=== PATIENT | female | born 1930 | race Caucasian/White ===

== ENCOUNTER 2021-12-31 20:09 | Inpatient (IN) | payer MEDICARE, OTHER ==
[~2021-12-31] VITALS: Ht 152.4 cm; Wt 79.4 kg
[~2021-12-31 20:09] MED LIST: ACET-822 PO; BENZ200C53 PO; CLID1CAP PO; DULO60CA45 PO; ESCI10TA PO; LANS30CA56 PO; MECL-159 PO; PREG50CA PO; TRAM50TA2 PO; VALS1TAB PO
[2021-12-31 21:40] LABS: HEMATOCRIT 38.3 % (31.2-41.9); MEAN CORPUSCULAR VOLUME 92.3 fL (75.5-95.3); PLATELET COUNT (AUTO) 284 K/uL (179-408)
--- NOTE | 2021-12-31 21:43 | NUR ---
pt out of er for CT
--- NOTE | 2021-12-31 21:59 | NUR ---
pt back from ct
--- NOTE | 2021-12-31 22:00 | NUR ---
PATIENT UNABLE TO RECALL HOME MEDICATION AT THIS TIME. CALLED PATIENT'S DAUGHTER GIOVANA COLLINS WHO STATES SHE WILL BRING BOTTLE OF MEDICATION IN THE AM.
[2021-12-31 22:25] LABS: ALANINE AMINOTRANSFERASE 22 U/L (14-59); ALKALINE PHOSPHATASE 106 U/L (50-136); ASPARTATE AMINOTRANSFERASE 28 U/L (15-37); BILIRUBIN,DIRECT 0.1 mg/dL (0.0-0.2); BILIRUBIN,TOTAL 0.3 mg/dL (0.2-1.0); CARBON DIOXIDE 32 mmol/L (21-32); CHLORIDE 100 mmol/L (98-107); CREATININE 0.9 mg/dL (0.6-1.3); GLUCOSE 118 mg/dL (74-106); POTASSIUM 3.8 mmol/L (3.5-5.1); TOTAL PROTEIN, SERUM 7.7 g/dL (6.4-8.2); UREA NITROGEN, BLOOD 26 mg/dL (7-18)
[2021-12-31 23:07] LABS: THYROID STIMULATING HORMONE 0.396 mIU/mL (0.358-3.740)
[2021-12-31 23:35] LABS: *BILIRUBIN,URIN NEGATIVE (NEGATIVE); *BLOOD, URINE 1+ (NEGATIVE); *COLOR,URINE YELLOW (YELLOW); *KETONES,URINE NEGATIVE (NEGATIVE); *UROBILINOGEN,URINE 0.2 E.U./dl (NORMAL); LEUKOCYTE ESTERASE ,URINE 1+ (NEGATIVE); NITRITE, URINE NEGATIVE (NEGATIVE); UGLUCOSE NEGATIVE (NEGATIVE)
[2022-01-01] MEDS ORDERED: CEFTRIAXONE 1 G in IV DEXTROSE 5% 50 ML IV ONE (00:15)
[2022-01-01] MEDS ORDERED: CEFTRIAXONE /D5W 50ML IVPB **ER PYXIS IV ONE (00:30)
--- NOTE | 2022-01-01 02:04 | NUR ---
pt in bed asleep. easily arousable no s/s of distress denies pain at this time instructed pt to call nurse for assistance will continue to monitor
--- NOTE | 2022-01-01 02:18 | NUR ---
report given to DAVID maynard
--- NOTE | 2022-01-01 03:22 | NUR ---
Dr. Bazan speaking to Guzman Pinto NP, [facility] utilization management um nurse
[2022-01-01] MEDS ORDERED: ONDANSETRON 4 MG/2 ML VIAL IV PRN (03:45)
[2022-01-01] MEDS ORDERED: HYDROCODONE/APAP 5-325MG TABLET PO PRN (03:45)
[2022-01-01] MEDS ORDERED: ACETAMINOPHEN 325 MG TABLET PO PRN (03:45)
[2022-01-01] MEDS ORDERED: REMEDY ESSENTIAL ZINC PASTE 113 GM TP PRN (03:45)
[2022-01-01] MEDS ORDERED: MAGNESIUM HYDROXIDE 30 ML LIQUID UDC PO PRN (03:45)
[2022-01-01] MEDS ORDERED: TEMAZEPAM 15 MG CAPSULE PO PRN (03:45)
--- NOTE | 2022-01-01 04:24 | NUR ---
Pt. admitted to TELE room 318 , under care of Guzman Pinto,APARTMENT HOTEL MANAGER [place] List completed no s/s of distress respirations even and unlabored Transfered to 3rd floor
--- NOTE | 2022-01-01 06:00 | NUR ---
Pt arrived at 0430 via gurney. AO x 2. Farsi speaking. On room air saturating at 98%. BP 132/74, HR 75, R 18, Temp 98.6. IV in R AC, saline flushed and heplock. Fall prevention and aspiration precautions initiated. Wound consult put in for evaluation of sacral excoriation. Pt complained of itchiness on left fingers. Call lights within reach. Safety measures implemented. Will endorse to am shift.
[2022-01-01] MEDS: PANTOPRAZOLE SODIUM 40 MG VIAL IV SCH (09:28)
[2022-01-01] MEDS: diphenhydrAMINE 1% CREAM 28.3 GM TUBE TP PRN ×2 (09:30→21:19)
--- NOTE | 2022-01-01 10:00 | NUR ---
patient with c/o itching all over body, asked patient and family if it is a new problem per patient and daughter "no she gets itchy sometimes" applied topical benadryl as ordered, per daughter can she get a shot, Dr. Salter in unit per MD if ointment is ineffective ok to order "benadryl 25mg x1"
[2022-01-01 11:33] VITALS: BP 129/46
--- NOTE | 2022-01-01 12:17 | NUR ---
WOUND CARE CONSULT: PT SEEN WITH SURGICAL P.A. FOR SKIN ASSESSMENT. PT NOTED TO HAVE INNER BUTTOCKS RASH WITH OPEN SKIN AND REDNESS TO LOWER LEGS AND BUNION, PRESENT ON ADMISSION. RECOMMEND DPM CONSULT. RECOMMENDATIONS MADE FOR SKIN CARE AND PROTECTION. DISCUSSED WITH NURSING STAFF AND SURGICAL P.A. DR BYRNES CALLED FOR DPM CONSULT. IN AGREEMENT WITH PLAN OF CARE.
--- NOTE | 2022-01-01 14:00 | NUR ---
DTR asking if patient could be sent to [facility] for the aging or for possible homehealth, explained i would relay information to CM.
[2022-01-01] MEDS ORDERED: PRIM50TA27 PO (14:18)
[2022-01-01] MEDS ORDERED: CALC60CR5 TP (14:32)
[2022-01-01] MEDS ORDERED: MULT-24 PO (14:32)
[2022-01-01] MEDS ORDERED: CHOL200059 PO (14:32)
[2022-01-01] MEDS ORDERED: KETO15CR2 TP (14:32)
[2022-01-01] MEDS ORDERED: VALS1TAB7 PO (14:32)
[2022-01-01] MEDS ORDERED: SIME180C70 PO (14:32)
[2022-01-01] MEDS ORDERED: MAG30ORA PO (14:32)
[2022-01-01] MEDS ORDERED: ACET-73 PO (14:32)
[2022-01-01] MEDS ORDERED: SIME125C81 PO (14:32)
[2022-01-01] MEDS ORDERED: TRAM50TA2 PO (14:32)
[2022-01-01] MEDS ORDERED: MECL-159 PO (14:32)
[2022-01-01] MEDS ORDERED: MONT10TA33 PO (14:32)
[2022-01-01] MEDS ORDERED: MELO-107 PO (14:32)
[2022-01-01] MEDS ORDERED: GLUC15006 PO (14:32)
[2022-01-01] MEDS ORDERED: MAG PO (14:32)
[2022-01-01] MEDS ORDERED: ZOLP10TA2 PO (14:32)
[2022-01-01] MEDS ORDERED: CYCL5TAB PO (14:32)
[2022-01-01] MEDS ORDERED: MELA5TAB PO (14:32)
[2022-01-01] MEDS ORDERED: TRIA15CR2 TP (14:32)
[2022-01-01] MEDS ORDERED: DEXT15DR6 OP (14:32)
[2022-01-01] MEDS ORDERED: CIPR2.5D14 RIGHTEYE (14:32)
[2022-01-01] MEDS ORDERED: OLOP2.5D12 EACHEYE (14:32)
[2022-01-01] MEDS ORDERED: LORA10TA7 PO (14:32)
[2022-01-01] MEDS ORDERED: LANS30CA56 PO (14:32)
[2022-01-01] MEDS ORDERED: BENZ200C53 PO (14:32)
[2022-01-01] MEDS ORDERED: HALO15CR2 TP (14:32)
[2022-01-01] MEDS ORDERED: CHLO473M3 MM (14:39)
[2022-01-01] MEDS ORDERED: VOLTAREN GEL 1% TP (14:39)
[2022-01-01] MEDS ORDERED: NEOM28.37 TP (14:39)
[2022-01-01] MEDS ORDERED: CHLORHEXIDINE GLUCONATE 15 ML MOUTHWASH MM PRN (15:00)
[2022-01-01] MEDS ORDERED: TRAMADOL HCL 50 MG TABLET PO PRN (15:00)
[2022-01-01] MEDS ORDERED: Medication Not On Formulary EA (Benzonatate 200 MG) PO PRN (15:00)
[2022-01-01 16:00] VITALS: BP 122/61
[2022-01-01] MEDS ORDERED: BENZONATATE 100 MG CAPSULE PO PRN (16:00)
[2022-01-01] MEDS ORDERED: diphenhydrAMINE 25 MG CAP PO ONE (16:15)
[2022-01-01] MEDS: MAG HYDROX/AL HYDROX/SIMETH 30 ML LIQUID UDC PO SCH (16:39)
[2022-01-01] MEDS ORDERED: Medication Not On Formulary EA (Glucosamine Hcl 1,500 MG) PO SCH (17:00)
[2022-01-01] MEDS ORDERED: AL HYDROX PO SCH (17:00)
[2022-01-01] MEDS ORDERED: SIMETH PO SCH (17:00)
[2022-01-01] MEDS ORDERED: [UNRECOGNIZED DRUG - OTHER] PO SCH (17:00)
[2022-01-01] MEDS ORDERED: GLUCOSAMINE 1500 MG PO SCH (17:00)
[2022-01-01] MEDS ORDERED: [UNRECOGNIZED DRUG - OTHER] PO SCH (17:00)
[2022-01-01] MEDS ORDERED: MAG HYDROX PO SCH (17:00)
[2022-01-01 17:07] LABS: *CLARITY,URINE SLIGHTLY HAZY (CLEAR)
[2022-01-01 17:08] LABS: BACTERIA,URINE MODERATE /HPF (NONE SEEN); SQUAMOUS EPITHELIAL CELL,UR FEW /HPF (NONE SEEN); YEAST,URINE FEW /HPF (NONE SEEN)
[2022-01-01] MEDS: SIMETHICONE 80 MG TAB.CHEW PO SCH (17:54)
[2022-01-01] MEDS: MECLIZINE HCL 25 MG TABLET PO SCH (17:55)
[2022-01-01] MEDS: CLOTRIMAZOLE 1% CREAM 30 GM TUBE TOP SCH (17:56)
[2022-01-01] MEDS ORDERED: Medication Not On Formulary EA (Simethicone 125 MG) PO SCH (18:00)
[2022-01-01] MEDS: CIPROFLOXACIN 0.3% OPHT DROP 2.5 ML BOTTLE RIGHTEYE SCH (18:29)
[2022-01-01 20:00] VITALS: BP 112/49
[2022-01-01] MEDS ORDERED: Medication Not On Formulary EA (Cyclobenzaprine Hcl 10 MG) PO SCH (21:00)
[2022-01-01] MEDS ORDERED: Medication Not On Formulary EA (Melatonin 5 MG) PO SCH (21:00)
[2022-01-01] MEDS: MELATONIN 3 MG TABLET PO SCH (21:16)
[2022-01-01] MEDS: PRIMIDONE 50 MG TABLET PO SCH (21:16)
[2022-01-01] MEDS: CYCLOBENZAPRINE HCL 10 MG TABLET PO SCH (21:16)
[2022-01-01] MEDS: MONTELUKAST SODIUM 10 MG TABLET PO SCH (21:16)
[2022-01-01] MEDS ORDERED: diphenhydrAMINE 25 MG CAP PO PRN (22:00)
--- NOTE | 2022-01-01 22:00 | NUR ---
Patient is in bed. Highly anxious screaming that her legs itch. Benadryl cream provided as ordered but not effective. Made Dr. Salter aware and received one time order for benadryl 25mg PO. This is effective. Patient noted scratching and breaking skin to upper lateral thighs and lower legs. She is farsi speaking, able to communicate simple needs. All needs attended, call light within reach.
[2022-01-02] MEDS: MECLIZINE HCL 25 MG TABLET PO SCH ×4 (00:21→17:32)
[2022-01-02] MEDS: CEFTRIAXONE 1 G in IV DEXTROSE 5% 50 ML IV SCH (00:30)
[2022-01-02 06:43] LABS: HEMATOCRIT 35.8 % (31.2-41.9); MEAN CORPUSCULAR HEMOGLOBIN 31.6 uug (24.7-32.8); MEAN CORPUSCULAR VOLUME 91.9 fL (75.5-95.3); PLATELET COUNT (AUTO) 242 K/uL (179-408)
[2022-01-02 06:58] LABS: CREATININE 0.7 mg/dL (0.6-1.3); MAGNESIUM 2.2 mg/dL (1.8-2.4); PHOSPHOROUS 2.8 mg/dL (2.5-4.9); POTASSIUM 3.8 mmol/L (3.5-5.1)
[2022-01-02 06:59] LABS: THYROID STIMULATING HORMONE 0.641 mIU/mL (0.358-3.740)
--- NOTE | 2022-01-02 06:59 | NUR ---
Patient had relief of itching with current medications. Still noted with occasional itching. Patient is able to transfer to [facility] for bathroom use. No other significant events.
[2022-01-02] MEDS ORDERED: SIMETHICONE 180 MG PO SCH (09:00)
[2022-01-02] MEDS ORDERED: Medication Not On Formulary EA (Meloxicam 15 MG) PO SCH (09:00)
[2022-01-02] MEDS ORDERED: Medication Not On Formulary EA (Lansoprazole 30 MG) PO SCH (09:00)
[2022-01-02] MEDS ORDERED: Medication Not On Formulary EA (Valsartan/Hydrochlorothiazide (Diovan Hct 320-12.5 Mg Ta PO SCH (09:00)
[2022-01-02] MEDS ORDERED: Medication Not On Formulary EA (Cholecalciferol (Vitamin D3) (Vitamin D3) 1 TAB) PO SCH (09:00)
[2022-01-02] MEDS: HYDROCHLOROTHIAZIDE 12.5 MG CAPSULE PO SCH (10:52)
[2022-01-02] MEDS: PRIMIDONE 50 MG TABLET PO SCH ×2 (10:52→20:37)
[2022-01-02] MEDS: SIMETHICONE 80 MG TAB.CHEW PO SCH ×2 (10:52→17:31)
[2022-01-02] MEDS: PANTOPRAZOLE SODIUM 40 MG VIAL IV SCH (10:52)
[2022-01-02] MEDS: MAG HYDROX/AL HYDROX/SIMETH 30 ML LIQUID UDC PO SCH ×3 (10:53→17:31)
[2022-01-02] MEDS: LORATADINE 10 MG TABLET PO SCH (10:53)
[2022-01-02] MEDS: CHOLECALCIFEROL 1,000 UNIT TABLET PO SCH (10:53)
[2022-01-02] MEDS: MULTIVITAMINS,THERAPEUTIC TABLET PO SCH (10:53)
[2022-01-02] MEDS: CLOTRIMAZOLE 1% CREAM 30 GM TUBE TOP SCH ×2 (10:54→17:34)
[2022-01-02] MEDS: NEOMY/BACITRAC/POLYMI OINT 28.35 GM TUBE TP SCH (10:54)
[2022-01-02] MEDS: POLYVINYL ALCOHOL OPHT DROPS 15 ML BOTTLE EACHEYE PRN (10:56)
[2022-01-02] MEDS: KETOCONAZOLE 2% CREAM 30 GM TUBE TP SCH (10:57)
[2022-01-02] MEDS: VALSARTAN 160 MG TABLET PO SCH (11:01)
[2022-01-02] MEDS: CIPROFLOXACIN 0.3% OPHT DROP 2.5 ML BOTTLE RIGHTEYE SCH ×2 (11:02→17:33)
--- NOTE | 2022-01-02 11:59 | NUR ---
Pt is a/o x 4. Wound cleaned and tx completed. pt is cooperative with care, comfort measures provided. Call light within reach, family at bedside, will continue to monitor.
[2022-01-02 12:00] VITALS: BP 114/54
[2022-01-02] MEDS: diphenhydrAMINE 25 MG CAP PO PRN ×2 (15:04→21:00)
[2022-01-02 16:00] VITALS: BP 127/66
[2022-01-02 20:00] VITALS: BP 127/62
[2022-01-02] MEDS: CYCLOBENZAPRINE HCL 10 MG TABLET PO SCH (20:37)
[2022-01-02] MEDS: MELATONIN 3 MG TABLET PO SCH (20:37)
[2022-01-02] MEDS: MONTELUKAST SODIUM 10 MG TABLET PO SCH (20:37)
[2022-01-02] MEDS: diphenhydrAMINE 1% CREAM 28.3 GM TUBE TP PRN (21:00)
[2022-01-03] MEDS: CEFTRIAXONE 1 G in IV DEXTROSE 5% 50 ML IV SCH (01:21)
[2022-01-03] MEDS: MECLIZINE HCL 25 MG TABLET PO SCH ×5 (01:21→23:48)
[2022-01-03 04:00] VITALS: BP 125/68
--- NOTE | 2022-01-03 05:46 | NUR ---
Patient slept intermittently this shift. AAO to person. Remains highly anxious about itching in BLE. Benadryl cream provided as ordered with little help. Benadryl 25mg PO provided and effective. redness and open skin still noted to BLE. Lotrimin and z guard applied to inner buttocks open areas, tolerates well. Patient is continent of bowel and bladder, clear yellow urine observed. IV dislodged to right AC, replaced with IV 20 gauge to right FA. All needs attended, call light within reach.
[2022-01-03] MEDS: PANTOPRAZOLE SODIUM 40 MG TABLET.DR PO SCH (06:29)
[2022-01-03 06:49] LABS: HEMATOCRIT 36.3 % (31.2-41.9); MEAN CORPUSCULAR HEMOGLOBIN 30.7 uug (24.7-32.8); MEAN CORPUSCULAR VOLUME 91.8 fL (75.5-95.3); PLATELET COUNT (AUTO) 227 K/uL (179-408)
[2022-01-03 07:08] LABS: CREATININE 0.7 mg/dL (0.6-1.3); POTASSIUM 3.9 mmol/L (3.5-5.1)
[2022-01-03] MEDS: HYDROCHLOROTHIAZIDE 12.5 MG CAPSULE PO SCH (08:06)
[2022-01-03] MEDS: SIMETHICONE 80 MG TAB.CHEW PO SCH ×2 (08:06→17:06)
[2022-01-03] MEDS: PRIMIDONE 50 MG TABLET PO SCH ×2 (08:06→20:33)
[2022-01-03] MEDS: MAG HYDROX/AL HYDROX/SIMETH 30 ML LIQUID UDC PO SCH ×3 (08:06→16:17)
[2022-01-03] MEDS: MULTIVITAMINS,THERAPEUTIC TABLET PO SCH (08:06)
[2022-01-03] MEDS: LORATADINE 10 MG TABLET PO SCH (08:06)
[2022-01-03] MEDS: CHOLECALCIFEROL 1,000 UNIT TABLET PO SCH (08:06)
[2022-01-03] MEDS: VALSARTAN 160 MG TABLET PO SCH (08:07)
[2022-01-03] MEDS: CIPROFLOXACIN 0.3% OPHT DROP 2.5 ML BOTTLE RIGHTEYE SCH ×2 (08:08→16:23)
[2022-01-03] MEDS: NEOMY/BACITRAC/POLYMI OINT 28.35 GM TUBE TP SCH (08:09)
[2022-01-03] MEDS: KETOCONAZOLE 2% CREAM 30 GM TUBE TP SCH (08:09)
[2022-01-03] MEDS: CLOTRIMAZOLE 1% CREAM 30 GM TUBE TOP SCH ×2 (08:09→16:23)
[2022-01-03 11:52] VITALS: BP 132/67
[2022-01-03] MEDS: diphenhydrAMINE 25 MG CAP PO PRN (16:17)
[2022-01-03 16:23] VITALS: BP 130/69
--- NOTE | 2022-01-03 19:47 | NUR ---
Patient resting in bed. Still complaining of itching to BLE. Denies any general pain. AAO to person and place, Farsi speaking. On RA, no SOB or respiratory distress. IV to right FA intact and patent. No diaper on, still noted with open skin to inner buttocks, treatment in place. Safety measures initiated. Call light within reach.
[2022-01-03 20:00] VITALS: BP 111/57
[2022-01-03] MEDS: CYCLOBENZAPRINE HCL 10 MG TABLET PO SCH (20:32)
[2022-01-03] MEDS: MONTELUKAST SODIUM 10 MG TABLET PO SCH (20:33)
[2022-01-03] MEDS: MELATONIN 3 MG TABLET PO SCH (20:33)
[2022-01-04] MEDS: CEFTRIAXONE 1 G in IV DEXTROSE 5% 50 ML IV SCH (01:15)
[2022-01-04 04:00] VITALS: BP 127/62
[2022-01-04] MEDS: MECLIZINE HCL 25 MG TABLET PO SCH ×2 (06:29→12:00)
[2022-01-04] MEDS: PANTOPRAZOLE SODIUM 40 MG TABLET.DR PO SCH (06:29)
--- NOTE | 2022-01-04 07:09 | NUR ---
No significant events this shift. All needs attended
[2022-01-04 08:00] VITALS: BP 107/62
[2022-01-04] MEDS: MAG HYDROX/AL HYDROX/SIMETH 30 ML LIQUID UDC PO SCH ×2 (09:34→12:51)
[2022-01-04] MEDS: MULTIVITAMINS,THERAPEUTIC TABLET PO SCH (09:35)
[2022-01-04] MEDS: CHOLECALCIFEROL 1,000 UNIT TABLET PO SCH (09:35)
[2022-01-04] MEDS: LORATADINE 10 MG TABLET PO SCH (09:35)
[2022-01-04] MEDS: HYDROCHLOROTHIAZIDE 12.5 MG CAPSULE PO SCH (09:35)
[2022-01-04] MEDS: SIMETHICONE 80 MG TAB.CHEW PO SCH (09:35)
[2022-01-04] MEDS: PRIMIDONE 50 MG TABLET PO SCH (09:35)
[2022-01-04] MEDS: VALSARTAN 160 MG TABLET PO SCH (09:39)
[2022-01-04] MEDS: POLYVINYL ALCOHOL OPHT DROPS 15 ML BOTTLE EACHEYE PRN (09:45)
[2022-01-04] MEDS: KETOCONAZOLE 2% CREAM 30 GM TUBE TP SCH (09:46)
[2022-01-04] MEDS: CIPROFLOXACIN 0.3% OPHT DROP 2.5 ML BOTTLE RIGHTEYE SCH (09:46)
[2022-01-04] MEDS: CLOTRIMAZOLE 1% CREAM 30 GM TUBE TOP SCH (09:46)
[2022-01-04] MEDS: NEOMY/BACITRAC/POLYMI OINT 28.35 GM TUBE TP SCH (09:46)
[2022-01-04 11:54] VITALS: BP 115/58
--- NOTE | 2022-01-04 13:02 | NUR ---
Pt is a/o x 4, requires help with ADLs and ambulating. Ambulatory with front wheel walker and 1 person assist. Plan is to discharge to [facility] today but pending placement confirmation from CM. Comfort measures provided, call light within reach. Will continue to monitor.
--- NOTE | 2022-01-04 15:21 | NUR ---
Pt granddaughter at bedside. Pt is being discharged to [facility] via [facility]. Pt is a/o x 4 her and family aware and agreeable of placement. All discharge education given at bedside to granddaughter and pt. IV and ID band removed. Report called to Negrita charge nurse. Pt going to room 505A. No signs of acute distress. All belongings at hand.
== END 2022-01-04 15:20 | DRG 641 ==
LOC: ER 20:12 → TELE3 01-01 03:58 → MEDSURG3 01-01 04:36
PROVIDERS: ADMIT Family Medicine; ATTEND Family Medicine
PROC: 0HBMXZZ Excision of Right Foot Skin, External Approach (ICD-10-PCS; principal; 2022-01-01)
DX: E86.9 Volume depletion, unspecified (principal); N17.9 Acute kidney failure, unspecified; E44.0 Moderate protein-calorie malnutrition; L03.115 Cellulitis of right lower limb; L03.116 Cellulitis of left lower limb; E87.1 Hypo-osmolality and hyponatremia; E86.1 Hypovolemia; R42 Dizziness and giddiness; E66.9 Obesity, unspecified; E88.09 Other disorders of plasma-protein metabolism, not elsewhere classified; F32.A Depression, unspecified; I10 Essential (primary) hypertension; K21.9 Gastro-esophageal reflux disease without esophagitis; M20.42 Other hammer toe(s) (acquired), left foot; M20.41 Other hammer toe(s) (acquired), right foot; R53.1 Weakness; Z68.34 Body mass index [BMI] 34.0-34.9, adult; M19.90 Unspecified osteoarthritis, unspecified site; L25.8 Unspecified contact dermatitis due to other agents; M20.12 Hallux valgus (acquired), left foot; M20.11 Hallux valgus (acquired), right foot; M79.672 Pain in left foot; M79.671 Pain in right foot; F39 Unspecified mood [affective] disorder; R73.9 Hyperglycemia, unspecified; L97.529 Non-pressure chronic ulcer of other part of left foot with unspecified severity; B36.8 Other specified superficial mycoses; M47.812 Spondylosis without myelopathy or radiculopathy, cervical region; Z91.81 History of falling; L24.9 Irritant contact dermatitis, unspecified cause
CPT/HCPCS: 36415; 70450; 71045; 72125; 83605; 83735; 84100; 84443; 84484; 85025; 85730; 87040; 87086; 93005; 97161; 97535-GO-CO; A4663; A6209; C1758; C9113; G0378; J0696; J7040; J7060; J8597; Q0163

== ENCOUNTER 2022-07-10 19:18 | Inpatient (IN) | payer MEDICARE, OTHER ==
[~2022-07-10] VITALS: Ht 157.5 cm; Wt 84.8 kg
[~2022-07-10 19:18] MED LIST changes: +ACET-73 PO; -ACET-822 PO; +CALC60CR5 TP; +CHLO473M3 MM; +CHOL200059 PO; +CIPR2.5D14 RIGHTEYE; -CLID1CAP PO; +CYCL5TAB PO; +DEXT15DR6 OP; -DULO60CA45 PO; -ESCI10TA PO; +HALO15CR2 TP; +KETO15CR2 TP; +LORA10TA7 PO; +MAG PO; +MAG30ORA PO; +MELA5TAB PO; +MELO-107 PO; +MONT10TA33 PO; +MULT-24 PO; +NEOM28.37 TP; +OLOP2.5D12 EACHEYE; -PREG50CA PO; +PRIM50TA27 PO; +SIME125C81 PO; +SIME180C70 PO; +TRIA15CR2 TP; -VALS1TAB PO; +VALS1TAB7 PO; +VOLTAREN GEL 1% TP; +ZOLP10TA2 PO
--- NOTE | 2022-07-10 19:25 | NUR ---
pt bib ra pt c/o general weakness. Dr. Park at bedside for MSE.
[2022-07-10] MEDS ORDERED: IV NORMAL SALINE 1000 ML BAG IV ONE (19:45)
[2022-07-10 20:12] LABS: HEMATOCRIT 38.8 % (31.2-41.9); MEAN CORPUSCULAR HEMOGLOBIN 31.1 uug (24.7-32.8); MEAN CORPUSCULAR VOLUME 92.5 fL (75.5-95.3); PLATELET COUNT (AUTO) 212 K/uL (179-408)
[2022-07-10 20:13] LABS: CARBON DIOXIDE 27 mmol/L (21-32); CHLORIDE 92 mmol/L (98-107); CREATININE 0.9 mg/dL (0.6-1.3); GLUCOSE 122 mg/dL (74-106); POTASSIUM 3.2 mmol/L (3.5-5.1); UREA NITROGEN, BLOOD 26 mg/dL (7-18)
[2022-07-10 20:23] LABS: *BILIRUBIN,URIN NEGATIVE (NEGATIVE); *COLOR,URINE YELLOW (YELLOW); *KETONES,URINE NEGATIVE (NEGATIVE); *UROBILINOGEN,URINE 0.2 E.U./dl (NORMAL); LEUKOCYTE ESTERASE ,URINE 1+ (NEGATIVE); NITRITE, URINE NEGATIVE (NEGATIVE); UGLUCOSE NEGATIVE (NEGATIVE)
[2022-07-10 20:26] LABS: ALANINE AMINOTRANSFERASE 29 U/L (14-59); ALKALINE PHOSPHATASE 86 U/L (50-136); ASPARTATE AMINOTRANSFERASE 32 U/L (15-37); BILIRUBIN,DIRECT 0.1 mg/dL (0.0-0.2); BILIRUBIN,TOTAL 0.7 mg/dL (0.2-1.0); TOTAL PROTEIN, SERUM 8.7 g/dL (6.4-8.2)
[2022-07-10 20:27] LABS: *BLOOD, URINE TRACE (NEGATIVE)
[2022-07-10 20:28] LABS: *CLARITY,URINE HAZY (CLEAR)
[2022-07-10] MEDS ORDERED: POTASSIUM BICARBONATE/CIT AC 25 MEQ TABLET.EFF PO ONE (20:30)
[2022-07-10 20:31] LABS: BACTERIA,URINE FEW /HPF (NONE SEEN); SQUAMOUS EPITHELIAL CELL,UR MODERATE /HPF (NONE SEEN)
[2022-07-10] MEDS ORDERED: CEFTRIAXONE 1 G in IV DEXTROSE 5% 50 ML IV ONE (20:45)
--- NOTE | 2022-07-10 20:51 | NUR ---
call to [facility] panel for admission.
--- NOTE | 2022-07-10 21:03 | NUR ---
Dr. Acosta panel [facility] called back.
[2022-07-10] MEDS ORDERED: POTASSIUM BICARBONATE/CIT AC 25 MEQ TABLET.EFF ONE (21:06)
[2022-07-10] MEDS ORDERED: CEFTRIAXONE /D5W 50ML IVPB **ER PYXIS IV ONE (21:06)
[2022-07-10] MEDS ORDERED: TRAMADOL HCL 50 MG TABLET PO PRN (21:15)
[2022-07-10] MEDS ORDERED: CHLORHEXIDINE GLUCONATE 15 ML MOUTHWASH MM PRN (21:15)
[2022-07-10] MEDS ORDERED: ACETAMINOPHEN 325 MG TABLET PO PRN (21:30)
[2022-07-10] MEDS ORDERED: MAGNESIUM HYDROXIDE 30 ML LIQUID UDC PO PRN (21:30)
[2022-07-10] MEDS ORDERED: REMEDY ESSENTIAL ZINC PASTE 113 GM TP PRN (21:30)
[2022-07-10] MEDS ORDERED: ONDANSETRON 4 MG/2 ML VIAL IV PRN (21:30)
--- NOTE | 2022-07-10 22:06 | NUR ---
call to 3rd floor to ask where the pt will go. I was told Yelena the charge nurse will call back.
--- NOTE | 2022-07-10 22:17 | NUR ---
second call to 3rd floor they state they still need to call me back. I now informed my charge nurse and he called the superintendent house.
--- NOTE | 2022-07-10 23:38 | NUR ---
call to Will on the third floor pt to go to room 307.
[2022-07-11] MEDS ORDERED: EPINEPHRINE 1:10,000 1 MG/10 ML DISP.SYRIN ONE
--- NOTE | 2022-07-11 00:15 | NUR ---
Admitted patient in Med surg floor under the care of Dr Acosta, diagnosis of UTI, patient alert to name and place, speak Farsi, but understand simple Gambian. Patient has right anterior thigh abrasion, generalized body rashes, including lower extremities, has sacral redness, and paul area redness. Patient has arthritis hand and fingers, right and left enlarge bunion, contracted r/l toes. Patient able to make needs know, kept clean and dry.
--- NOTE | 2022-07-11 00:28 | NUR ---
pt transported to room 307 via [facility] with all belongings. RN Will at bedside to receive the pt.
[2022-07-11 00:30] VITALS: BP 142/64
[2022-07-11] MEDS: IV NS 1000 ML 1,000 ML IV PRN ×2 (00:35→21:16)
[2022-07-11] MEDS: ACETAMINOPHEN ES 500 MG TABLET PO PRN ×2 (00:39→13:14)
[2022-07-11] MEDS: ENOXAPARIN SODIUM 30 MG/0.3 ML DISP.SYRIN SQ SCH ×2 (01:01→21:04)
--- NOTE | 2022-07-11 01:49 | NUR ---
Patient sat 88% at room air, place oxygen 2 NC sat wnl.
[2022-07-11 04:00] VITALS: BP 125/62
--- NOTE | 2022-07-11 04:53 | NUR ---
Patient complain of pain during urination, notify Gomez WRITING MANAGER with order.
[2022-07-11] MEDS: PHENAZOPYRIDINE HCL 100 MG TABLET PO SCH ×3 (05:36→21:33)
--- NOTE | 2022-07-11 05:39 | NUR ---
Patient awake given Pyridium for complain of urgency, painful urination, rendered good paul care. cont to monitor.
[2022-07-11 06:53] LABS: HEMATOCRIT 37.6 % (31.2-41.9); MEAN CORPUSCULAR VOLUME 92.2 fL (75.5-95.3); PLATELET COUNT (AUTO) 196 K/uL (179-408)
[2022-07-11] MEDS ORDERED: PANTOPRAZOLE SODIUM 40 MG TABLET.DR PO SCH (07:00)
[2022-07-11 07:10] LABS: CREATININE 0.9 mg/dL (0.6-1.3); MAGNESIUM 1.9 mg/dL (1.8-2.4); POTASSIUM 3.5 mmol/L (3.5-5.1)
[2022-07-11 07:52] LABS: PHOSPHOROUS 3.8 mg/dL (2.5-4.9)
[2022-07-11] MEDS: PRIMIDONE 50 MG TABLET PO SCH ×2 (08:34→16:02)
[2022-07-11] MEDS: MAG HYDROX/AL HYDROX/SIMETH 30 ML LIQUID UDC PO SCH ×3 (08:35→16:03)
[2022-07-11] MEDS: REMEDY ESSENTIAL ZINC PASTE 113 GM TOP SCH ×2 (08:35→21:06)
[2022-07-11] MEDS ORDERED: MELOXICAM 7.5 MG TABLET PO SCH (09:00)
[2022-07-11] MEDS ORDERED: [UNRECOGNIZED DRUG - OTHER] PO SCH (09:00)
[2022-07-11] MEDS ORDERED: MONTELUKAST SODIUM 10 MG TABLET PO SCH (09:00)
[2022-07-11] MEDS ORDERED: MAG HYDROX PO SCH (09:00)
[2022-07-11] MEDS ORDERED: SIMETH PO SCH (09:00)
[2022-07-11] MEDS ORDERED: AL HYDROX PO SCH (09:00)
[2022-07-11] MEDS ORDERED: LORATADINE 10 MG TABLET PO SCH (09:00)
[2022-07-11 11:43] VITALS: BP 114/76
--- NOTE | 2022-07-11 14:44 | NUR ---
Patient's IV site no longer functional as site removed by accident during patient moving. Will attempt to start new IV site. Patient requesting to not have IV site for a short period of time. Will remind patient importance of IV site.
[2022-07-11 15:04] VITALS: BP 116/71
--- NOTE | 2022-07-11 20:00 | NUR ---
PM shift Patient received in bed, AOx2, no sob, no c/o pain noted. O@ 2lpm,
[2022-07-11 20:15] VITALS: BP 106/61
[2022-07-11] MEDS ORDERED: CEFTRIAXONE 1 G in IV DEXTROSE 5% 50 ML IV SCH (21:00)
[2022-07-11] MEDS ORDERED: MELATONIN 3 MG TABLET PO SCH (21:00)
--- NOTE | 2022-07-11 21:00 | NUR ---
Given routine medicine and BT = 99.1 so removed blanket.
--- NOTE | 2022-07-11 23:00 | NUR ---
Patient asleep in bed, quiet, no sob,
--- NOTE | 2022-07-12 00:30 | NUR ---
Inserted new IV access on right forearm # 18, NS @ 75ml/hr running will.
--- NOTE | 2022-07-12 01:30 | NUR ---
Patient asleep in bed, quiet, no sob, no acute distress noted. will continue to monitor.
--- NOTE | 2022-07-12 03:00 | NUR ---
Rounding to patient room, quiet
--- NOTE | 2022-07-12 04:05 | NUR ---
Called to family for patient @ [phone]
[2022-07-12] MEDS: PHENAZOPYRIDINE HCL 100 MG TABLET PO SCH (05:25)
--- NOTE | 2022-07-12 05:58 | NUR ---
CODE BLUE WAS CALLED AT [phone]. INITIATED CPR AND MANUAL VENTILATION VIA AMBU BAG AT 15 LPM. ER DOCTOR ARRIVED, RE-ASSESSED PATIENT WITH UNAPPRECIATED VITAL SIGNS. CONTINUE CPR AND MANUAL VENTILATION. [id number] PATIENT WAS PRONOUNCED .
--- NOTE | 2022-07-12 07:43 | NUR ---
Received report from PM nurse. Awaiting pick up and delivery driver of patient's body by mortuary. Family on unit awaiting for pick up and delivery driver.
== END 2022-07-12 03:45 | DRG 689 ==
LOC: ER 19:19 → MEDSURG3 23:49
PROVIDERS: ADMIT Internal Medicine; ATTEND Internal Medicine
PROC: 5A12012 Performance of Cardiac Output, Single, Manual (ICD-10-PCS; principal; 2022-07-12)
DX: N39.0 Urinary tract infection, site not specified (principal); G93.41 Metabolic encephalopathy; N17.0 Acute kidney failure with tubular necrosis; E87.1 Hypo-osmolality and hyponatremia; E86.0 Dehydration; E11.9 Type 2 diabetes mellitus without complications; E86.1 Hypovolemia; E88.09 Other disorders of plasma-protein metabolism, not elsewhere classified; K21.9 Gastro-esophageal reflux disease without esophagitis; M19.90 Unspecified osteoarthritis, unspecified site; R53.1 Weakness; I10 Essential (primary) hypertension; I25.10 Atherosclerotic heart disease of native coronary artery without angina pectoris; X58.XXXA Exposure to other specified factors, initial encounter; Y93.9 Activity, unspecified; S81.809A Unspecified open wound, unspecified lower leg, initial encounter; Y92.009 Unspecified place in unspecified non-institutional (private) residence as the place of occurrence of the external cause; Z87.440 Personal history of urinary (tract) infections
CPT/HCPCS: 36415; 71045; 83605; 83735; 84100; 84484; 85025; 85730; 87040; 87086; 92950; 93005; A4663; A9150; G0378; J0171; J0696; J1650; J7040